=== PATIENT | female | born 1960 | race American Indian/Alaskan Native ===

== ENCOUNTER 2016-10-05 13:20 | Emergency (ER) | payer SELFPAY ==
--- NOTE | 2016-10-05 14:37 | Emergency Department Report ---
Entered by PIPER MENA, acting as scribe for EMRE BUTCHER NP. Chief Complaint: Fall Stated Complaint: FALL/LEFT SIDE PAIN Time Seen by Provider: 10/05/16 14:36 - HPI History of Present Illness: 56 y/o female c/o fall occurring yesterday. Associated bilateral shoulder pain, left knee pain, and left hip pain but denies LOC or head trauma. Patient states she slipped on something wet in [employer]. - ROS Review of Systems: +fall +bilateral shoulder pain +left knee pain - Exam Vital Signs: Vital Signs 10/05/16 14:28 Temperature 98.1 F Pulse Rate 59 L Respiratory 18 Rate Blood Pressure 134/92 O2 Sat by Pulse 99 Oximetry Physical Exam: GENERAL: The patient is a well-developed, well-nourished, in no apparent distress. Patient is alert and oriented x3. M/S: left should tenderness. Left knee tenderness No post midline C-spine tenderness MSE screening note: Focused history and physical exam performed. Due to findings the following was ordered: plain films ED Disposition for MSE Condition: Stable This documentation as recorded by the scribe,PIPER MENA,accurately reflects the service I personally performed and the decisions made by me,EMRE BUTCHER, VETERINARY ANATOMIST.
--- NOTE | 2016-10-05 15:15 | XRay Report ---
LEFT SHOULDER RADIOGRAPHS INDICATION: Pain, status post fall. COMPARISON: None similar. FINDINGS: Frontal and Y views of the left shoulder, 3 projections demonstrate normal humeral head contour, well positioned against the glenoid. Normal acromioclavicular joint. Preserved scapular contour. Normal visualized soft tissues, left ribs and lung. CONCLUSION: No acute left shoulder radiographic abnormality, as described. Thank you for the opportunity to participate in this patient's care.
--- NOTE | 2016-10-05 15:16 | XRay Report ---
LEFT KNEE RADIOGRAPHS INDICATION: Pain, status post fall. COMPARISON: None similar. FINDINGS: AP, lateral and oblique left knee radiographs demonstrate intact bony articulation and appearance. Normal soft tissues without evidence of suprapatellar effusion. CONCLUSION: Normal left knee radiographs. Thank you for the opportunity to participate in this patient's care.
--- NOTE | 2016-10-05 18:14 | Emergency Department Report ---
ED Fall HPI - General Chief Complaint: Fall Stated Complaint: FALL/LEFT SIDE PAIN Time Seen by Provider: 10/05/16 14:28 Source: patient Mode of arrival: Ambulatory - History of Present Illness Initial Comments: 56-year-old female past medical history none presents with complaint of pain to her left knee and left shoulder status post mechanical fall in [employer]. Patient states she was shopping [employer], walking down the aisle there was some slippery/sticky material on the floor she slipped forward into a split position was caught by a bystander. Patient states that she tried to right herself she fell down onto left knee. Braced her self with her hands. Patient denies any head injury, no loss of consciousness, no lacerations sustained. Is awake alert and oriented 3 during my interview. Patient is ambulatory with slight limp due to pain in left knee as per patient. Denies any upper or lower extremity paresthesias. States that her hands and shoulders feel very sore worse in the left shoulder. Visibly ranging her shoulders during interview and hands during interview. Complaint: fall Onset/Timin -: days(s) Fall From: standing Fall Witnessed: yes, by bystander Place Fall Occurred: other ([employer]) Prolonged Down Time?: no Symptoms Prior to Fall: none Location - Extremities: Left: Shoulder (left shoulder soreness), Knee (left knee soreness) Severity: moderate Severity scale (0 -10): 6 Quality: aching Context: tripped/slipped Associated Symptoms: denies - Related Data Previous Rx's Medication Instructions Recorded Last Taken Type Cyclobenzaprine [Flexeril] 10 mg PO TID PRN #9 tablet 10/05/16 Unknown Rx Naproxen [Naprosyn TAB] 500 mg PO BID PRN #25 tablet 10/05/16 Unknown Rx Allergies Allergy/AdvReac Type Severity Reaction Status Date / Time No Known Allergies Allergy Unverified 10/05/16 14:34 ED Review of Systems ROS: Stated complaint: FALL/LEFT SIDE PAIN Other details as noted in HPI Constitutional: denies: chills, fever Eyes: denies: eye pain, eye discharge, vision change ENT: denies: ear pain, throat pain Respiratory: denies: cough, shortness of breath, wheezing Cardiovascular: denies: chest pain, palpitations Endocrine: no symptoms reported Gastrointestinal: denies: abdominal pain, nausea, diarrhea Genitourinary: denies: urgency, dysuria, discharge Musculoskeletal: denies: back pain, joint swelling, arthralgia Skin: denies: rash, lesions Neurological: denies: headache, weakness, paresthesias Psychiatric: denies: anxiety, depression Hematological/Lymphatic: denies: easy bleeding, easy bruising ED Past Medical Hx - Past Medical History Hx of Cancer: Yes (VAGINA) - Surgical History Additional Surgical History: VAGINAL CANCER REMOVED - Social History Smoking Status: Current Every Day Smoker Substance Use Type: Marijuana - Medications Home Medications: Home Medications Medication Instructions Recorded Confirmed Last Taken Type Cyclobenzaprine [Flexeril] 10 mg PO TID PRN #9 tablet 10/05/16 Unknown Rx Naproxen [Naprosyn TAB] 500 mg PO BID PRN #25 tablet 10/05/16 Unknown Rx ED Physical Exam - General Limitations: No Limitations General appearance: alert, in no apparent distress - Head Head exam: Present: atraumatic, normocephalic - Eye Eye exam: Present: normal appearance, PERRL, EOMI - ENT ENT exam: Present: mucous membranes moist - Neck Neck exam: Present: normal inspection, full ROM - Respiratory Respiratory exam: Present: normal lung sounds bilaterally. Absent: respiratory distress - Cardiovascular Cardiovascular Exam: Present: regular rate, normal rhythm. Absent: systolic murmur, diastolic murmur, rubs, gallop - GI/Abdominal GI/Abdominal exam: Present: soft, normal bowel sounds - Extremities Exam Extremities exam: Present: normal inspection - Expanded Upper Extremity Exam Left Shoulder Exam: Present: normal inspection, full ROM (shoulder abduction and abduction and internal and external rotation intact on exam no clinical signs of dislocation) Upper Arm exam: Present: normal inspection, full ROM Elbow exam: Present: normal inspection, full ROM Forearm Wrist exam: Present: normal inspection, full ROM Hand Wrist exam: Present: normal inspection, full ROM Neuro motor exam: Present: wrist extension intact, thumb opposition intact, thumb IP flexion intact, thumb adduction intact, fingers 2-5 abduction intact Vascular: Present: normal capillary refill, radial pulse (distal pulses intact) - Expanded Lower Extremity Exam Left Hip exam: Present: normal inspection, full ROM Upper Leg exam: Present: normal inspection, full ROM Knee exam: Present: normal inspection, full ROM (knee flexion and extension fully intact against resistance), tenderness (mild anterior patellar tenderness left knee), pain/laxity with valgus (normal valgus varus testing), full knee extension Lower Leg exam: Present: normal inspection, full ROM Ankle exam: Present: normal inspection Foot/Toe exam: Present: normal inspection Neuro vascular tendon exam: Present: no vascular compromise (distal dorsalis pedis and posterior tibial pulses intact) Gait: Positive: antalgic (patient limping due to mild left knee pain) 1 - Mild pain on palpation here - Back Exam Back exam: Present: normal inspection - Neurological Exam Neurological exam: Present: alert, oriented X3, CN II-XII intact, abnormal gait (slight limp due to pain left knee the patient is ambulatory on exam) - Expanded Neurological Exam Expanded Patient oriented to: Present: person, place, time Cerebellar function: Finger to Nose: Normal, Heel to Hernandez: Normal, Romberg: Normal Motor strength exam: RUE: 5, LUE: 5, RLE: 5, LLE: 5 Best Eye Response (Xuan): (4) open spontaneously Best Motor Response ([place]): (6) obeys commands Best Verbal Response (Xuan): (5) oriented Xuan Total: 15 - Psychiatric Psychiatric exam: Present: normal affect, normal mood - Skin Skin exam: Present: warm, dry, intact, normal color. Absent: rash ED Course Vital Signs 10/05/16 10/05/16 14:28 18:46 Temperature 98.1 F Pulse Rate 59 L 66 Respiratory 18 20 Rate Blood Pressure 134/92 Blood Pressure 135/85 [Left] O2 Sat by Pulse 99 97 Oximetry ED Medical Decision Making - Medical Decision Making A/P: Left knee sprain, left shoulder sprain 1-naproxen and Flexeril when necessary 2-x-rays show no fractures, RICE therapy, [place]win wrap 3- patient has clinical signs of sprains of shoulder and knee, no signs of fracture and is fully ambulatory strength 5 out of 5 all extremities. Pain is currently 3 out of 10. Has no signs of hand or wrist injuries on clinical exam distal pulses sensation and range of motion all fingers and wrist fully intact no snuffbox tenderness on exam bilaterally 4- primary care and ortho follow up Critical care attestation.: If time is entered above; I have spent that time in minutes in the direct care of this critically ill patient, excluding procedure time. ED Disposition Clinical Impression: Shoulder sprain Qualifiers: Encounter type: initial encounter Shoulder sprain type: other part of shoulder region Laterality: left Qualified Code(s): S43.492A - Other sprain of left shoulder joint, initial encounter Left knee sprain Qualifiers: Encounter type: initial encounter Involved ligament of knee: other ligament Qualified Code(s): S83.8X2A - Sprain of other specified parts of left knee, initial encounter Disposition: TO HOME OR SELFCARE Is pt being admited?: No Does the pt Need Aspirin: No Condition: Stable Instructions: Knee Sprain (ED), Shoulder Sprain (ED), RICE Therapy (ED) Prescriptions: Cyclobenzaprine [Flexeril] 10 mg PO TID PRN #9 tablet PRN Reason: Muscle Spasm Naproxen [Naprosyn TAB] 500 mg PO BID PRN #25 tablet PRN Reason: Pain Referrals: [facility] [Outside] - 3-5 Days [facility] [Outside] - 3-5 Days DIANA GRANADO MD [Staff Physician] - 3-5 Days Time of Disposition: 18:14
[2016-10-05 18:47] VITALS: BP 135/85
== END 2016-10-05 18:46 | disposition home or self-care (01) ==
LOC: ED 13:20
DX: S43.492A Other sprain of left shoulder joint, initial encounter (principal); S83.8X2A Sprain of other specified parts of left knee, initial encounter; F17.200 Nicotine dependence, unspecified, uncomplicated; F12.10 Cannabis abuse, uncomplicated; C52 Malignant neoplasm of vagina; W01.0XXA Fall on same level from slipping, tripping and stumbling without subsequent striking against object, initial encounter; Y93.89 Activity, other specified; Y99.8 Other external cause status; Y92.59 Other trade areas as the place of occurrence of the external cause
CPT/HCPCS: 99283